=== PATIENT | male | born 1965 | race Hispanic/Latino ===

== ENCOUNTER 2018-03-09 09:20 | Emergency (ER) | payer SELFPAY ==
[~2018-03-09] VITALS: Ht 177.8 cm; Wt 99.8 kg
[2018-03-09] MEDS ORDERED: SODIUM CHLORIDE 0.9% 1000ML 1,000 ML IV STA (09:30)
[2018-03-09 09:41] LABS: BASOPHILS % 0.4 % (0.0-1.0); EOSINOPHILS # (AUTO) 0.1 (0.0-0.4); EOSINOPHILS % 0.9 % (0.0-6.0); HEMATOCRIT 42.6 % (38.2-49.6); HEMOGLOBIN 14.5 g/dL (14.0-18.0); LYMPHOCYTES # (AUTO) 1.1 (1.0-3.2); LYMPHOCYTES % 19.1 % (18.0-39.1); MEAN CORPUSCULAR HEMOGLOBIN 30.9 pg (28-32); MEAN CORPUSCULAR VOLUME 90.8 fL (81-99); MONOCYTES # (AUTO) 0.6 (0.2-0.8); MONOCYTES % 10.7 % (4.4-11.3); NEUTROPHILS # (AUTO) 3.9 (2.1-6.9); NEUTROPHILS % 68.7 % (38.7-80.0); PLATELET COUNT 173 x10e3/uL (140-360); RED BLOOD COUNT 4.69 x10e6/uL (4.3-5.7); RED CELL DISTRIBUTION WIDTH 12.7 % (11.7-14.4)
[2018-03-09 10:12] LABS: ALANINE AMINOTRANSFERASE 20 IU/L (0-55); ALBUMIN 3.5 g/dL (3.5-5.0); ALBUMIN/GLOBULIN RATIO 0.8 (0.8-2.0); ALKALINE PHOSPHATASE 105 IU/L (40-150); BLOOD UREA NITROGEN 22 mg/dL (7-26); BUN/CREATININE RATIO 25 (6-25); CALCIUM 9.9 mg/dL (8.4-10.2); CARBON DIOXIDE 23 mmol/L (22-29); CHLORIDE 96 mmol/L (98-107); CREATINE KINASE 39 IU/L (30-200); CREATININE, SERUM 0.88 mg/dL (0.72-1.25); EST GLOMERULAR FILTRATION RATE > 60 ML/MIN (60-); SODIUM 127 mmol/L (136-145)
[2018-03-09 10:17] LABS: GLUCOSE 410 mg/dL (74-118)
[2018-03-09] MEDS ORDERED: INSULIN REGULAR, HUMAN 100 UNIT/1 ML 3ML VIAL IV ONE ×2 (10:30→10:45)
[2018-03-09 10:52] VITALS: BP 145/87
== END 2018-03-09 11:00 | disposition home or self-care (01) ==
LOC: ER 09:20
DX: E11.65 Type 2 diabetes mellitus with hyperglycemia (principal); I10 Essential (primary) hypertension; E78.5 Hyperlipidemia, unspecified
CPT/HCPCS: 36415; 80053; 82550; 82553; 82948; 84484; 85025; 93005; 99284